=== PATIENT | female | born 1960 | race Two or more races ===

== ENCOUNTER 2025-09-19 07:52 | Day surgery (SDC) | payer MEDICAID ==
[2025-09-14 12:39] LABS: Nucleated Red Blood Cells % 0.0 %
[2025-09-14 12:41] LABS: Hematocrit 36.6 % (36.0-46.0); Hemoglobin 12.1 g/dL (12.2-16.2); Mean Corpuscular Hemoglobin 26.7 pg (28.0-32.0); Mean Corpuscular Volume 80.7 fL (80.0-100.0)
[2025-09-14 12:53] LABS: INR 0.99 (0.9-1.15); Partial Thromboplastin Time 30.5 SEC (24.5-34.5); Prothrombin Time 10.5 sec (9.3-11.8)
[2025-09-14 13:34] LABS: Alanine Aminotransferase 16 U/L (7-40); Albumin 4.1 g/dL (3.2-4.8); Alkaline Phosphatase 109 U/L (46-116); Anion Gap 8 (5-15); BUN/Creatinine Ratio 10.3 (10.0-20.0); Calcium 9.1 mg/dL (8.7-10.4); Carbon Dioxide 29 mmol/L (20-31); Chloride 106 mmol/L (98-107); Glucose 92 mg/dL (74-106); Potassium 4.1 mmol/L (3.5-5.1); Sodium 143 mmol/L (136-145); Total Protein 7.1 g/dL (5.7-8.2)
[2025-09-14 13:35] LABS: Bilirubin, Total 0.3 mg/dL (0.2-1.0)
[2025-09-14 13:36] LABS: Blood Urea Nitrogen 9 mg/dL (9-23)
[2025-09-14 13:51] LABS: Urine Protein, UAD Negative (Negative)
[~2025-09-19] VITALS: Ht 162.6 cm; Wt 73.5 kg
[~2025-09-19 07:52] MED LIST: ATOR20TA PO; BENZ100C97 PO; BUPR-133 PO; CYCL-837 PO; DOCU-94 PO; HYDR-4795 PO; LISI2.5T47 PO; MELO15TA29 PO; PANT40TA2 PO; QUET300T14 PO
--- NOTE | 2025-09-19 10:07 | DVHOP2 ---
Operative Report - 2 Report Details Date: 09/19/25 Preop Diagnosis: 1. Right foot metatarsalgia 2. Right foot callus 3. Right foot pain Postop Diagnosis: Same as preop Surgeon: Jessica Moran MD Anesthesiologist: See anesthesia Anesthesia: Mac Consent: The patient was informed of the risks and benefits of the procedure. These include but are not limited to complications of anesthesia, postoperative infection, incomplete relief of symptoms, recurrence of symptoms, damage to blood vessels, nerves and tendons, deep venous thrombosis, pulmonary embolism and possible need for repeat surgery in the future. Complications: None Estimated Blood Loss: Minimal Fluids: See anesthesia Findings: Consistent with diagnosis Indications for Surgery: Worsening foot pain Name of Procedure Performed 1. Right second jose j osteotomy (03624) 2. Right second metatarsal capsulotomy (72480) Procedure Details Procedure Details: PRE-PROCEDURE INFORMATION: In the pre-op holding area, the extremity to be operated on was clearly marked and the patient verified correct laterality of the marking. The patient was transferred to the OR table and placed in a supine position. A timeout was performed in which identification of the correct patient, procedure, location, and materials was done. The right foot and leg were prepped and draped in normal sterile fashion. DESCRIPTION OF PROCEDURE: Attention was directed to the right 2nd metatarsal head where a stab incision was made. The incision was deepened through blunt and sharp dissection. Care was taken to avoid damage to neurovascular structures throughout dissection. Incision was carried to the level of the 2nd metatarsal head, it was noted there was significant plantar flexion of the metatarsal head. Using an MIS bur, the an osteotomy was performed across the neck of the metatarsal head. The metatarsal head was then able to float. The capsule of the 2nd metatarsal was then released so that it will allow for metatarsal for flow. The incision was closed with 4-0 nylon. All surgical wounds were irrigated copiously with saline and closed in layers with the aforementioned suture material. A dry sterile dressing was placed on the surgical extremity. The patient was placed in a postop POSTOPERATIVE INFORMATION: The patient tolerated the above noted procedure and anesthesia well and was transferred to the PACU with vital signs stable, and vascular status intact with capillary refill intact to all digits. Postoperative instructions reviewed in detail with the patient with written instructions provided. Patient will return to clinic in approximately 10-14 days for first postoperative visit. Patient has the number of the clinic and was instructed to call prior to that time should any problems, questions, or concerns arise. Condition Good Disposition Home Visit Coding Podiatry Date of Service if different f: Sep 19, 2025 Billing Provider: JESSICA MORAN DPM Podiatry Common Visit Codes: PROCEDURE ONLY JESSICA MORAN DPM Sep 19, 2025 10:07
[2025-09-19] MEDS ORDERED: ONDANSETRON HCL 4 MG/2 ML VIAL ONE (10:20)
[2025-09-19] MEDS ORDERED: LIDOCAINE 1% INJ PF 5ML AMP ONE (10:20)
[2025-09-19] MEDS ORDERED: KETAMINE 50mg/ML 1ml syringe ONE (10:21)
[2025-09-19] MEDS ORDERED: PROPOFOL 10 MG/ML 20 ML IV ONE (10:21)
[2025-09-19] MEDS ORDERED: GLYCOPYRROLATE 0.2 MG/ML 1ML VIAL ONE (10:21)
[2025-09-19] MEDS ORDERED: KETOROLAC TROMETH 30 MG/ML 1ML VIAL ONE (10:21)
[2025-09-19] MEDS: ceFAZolin 2 GM/D5W50ml 50 ML IV ONE (10:34)
[2025-09-19] MEDS: LIDOCAINE 1% HCL (LOCAL ANESTH.) INJ 20ML MDV ONE (10:34)
[2025-09-19 10:41] VITALS: PULSE 93; RESP 17; TEMP 97.9
[2025-09-19] MEDS ORDERED: hydrALAZINE HCL 20 MG/ML VL IV PRN (11:00)
[2025-09-19] MEDS ORDERED: fentaNYL CITRATE 100 MCG/2 ML VL IV PRN (11:00)
[2025-09-19] MEDS ORDERED: ONDANSETRON HCL 4 MG/2 ML VIAL IV PRN (11:00)
[2025-09-19] MEDS ORDERED: FLUMAZENIL 0.1 MG/ML INJ 10ML MDV IV PRN (11:00)
[2025-09-19] MEDS ORDERED: HYDROmorphone HCL 2 MG/ML VL/or syr IV PRN (11:00)
[2025-09-19] MEDS ORDERED: NALOXONE HCL 0.4 MG/ML VIAL IV PRN (11:00)
[2025-09-19 11:05] VITALS: BP 149/90; PULSE 84; O2SAT 96
[2025-09-19 11:11] VITALS: RESP 18
[2025-09-19 11:31] VITALS: RESP 18
== END 2025-09-19 11:31 | disposition home or self-care (01) ==
LOC: SUR 07:52
PROVIDERS: ATTEND Podiatrist
DX: M77.41 Metatarsalgia, right foot (principal); M67.01 Short Achilles tendon (acquired), right ankle; L84 Corns and callosities; I10 Essential (primary) hypertension; J44.9 Chronic obstructive pulmonary disease, unspecified; M19.90 Unspecified osteoarthritis, unspecified site; F32.A Depression, unspecified; F41.9 Anxiety disorder, unspecified; E66.3 Overweight; Z68.27 Body mass index [BMI] 27.0-27.9, adult; Z79.899 Other long term (current) drug therapy; Z90.710 Acquired absence of both cervix and uterus; Z98.890 Other specified postprocedural states; Z87.891 Personal history of nicotine dependence; Z88.6 Allergy status to analgesic agent
CPT/HCPCS: 28270; 28308; 36415; 80053; 81001; 85025; 85610; 85730; J0690; J1100; J1885; J2003; J2405; J2704